=== PATIENT | male | born 1985 | race African-American/Black ===

== ENCOUNTER 2024-12-18 13:31 | Emergency (ER) | payer SELFPAY ==
[2024-12-18 13:34] VITALS: BP 136/87
[2024-12-18 13:36] VITALS: BMI 26.4
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
[2024-12-18 14:39] VITALS: BP 146/100
== END 2024-12-18 15:33 | disposition home or self-care (01) ==
LOC: EMR 13:31
PROVIDERS: EMERGENCY PHYSICIAN Emergency Medicine
DX: Z71.1 Person with feared health complaint in whom no diagnosis is made (principal); E73.9 Lactose intolerance, unspecified
CPT/HCPCS: 99284; 74176